=== PATIENT | male | born 1975 | race Caucasian/White ===

== ENCOUNTER 2023-04-05 08:13 | Outpatient (CLI) | payer MEDICAID | END 2023-04-05 23:59 | disposition critical access hospital (66) | LOC: EMS 08:13 | DX: R10.84 Generalized abdominal pain (principal); R11.10 Vomiting, unspecified | CPT/HCPCS: A0425; A0429; A0999 ==

== ENCOUNTER 2023-04-05 08:33 | Emergency (ER) | payer MEDICAID ==
[2023-04-05 08:52] VITALS: BP 121/84; O2SAT 98
== END 2023-04-05 09:05 | disposition left against medical advice (07) ==
LOC: ED 08:33
DX: Z53.21 Procedure and treatment not carried out due to patient leaving prior to being seen by health care provider (principal)
CPT/HCPCS: 99283

== ENCOUNTER 2023-04-05 09:47 | Emergency (ER) | payer MEDICAID ==
--- NOTE | 2023-04-05 10:22 | ED Physician Documentation ---
PD HPI ABD PAIN - Stated complaint Stated Complaint: GI - Chief complaint Chief Complaint: Abd Pain - History obtained from History obtained from: Patient - Additional information Additional information: Patient is a 48-year-old male with a history of opiate addiction presenting for evaluation of feeling generalized abdominal pain, cramping in the lower abdomen, nausea and vomiting, diarrhea for the past 2 days. Patient states that he had been constipated started using laxatives yesterday and has been having diarrhea since.He reports he has been having issues with his GI system for over a year a nd has not had any prior evaluations. He was at [facility] detoxing from fentanyl and had been there for 3 days. He states he was too ill to complete his treatment. He was sent to the emergency department from [facility]. He initially presented to the ER via EMS but then left without being seen. He then was waiting for the bus and decided to come back to the emergency department for evaluation. No fever, chest pain, shortness of air. Denies alcohol use. Denies prior abdominal surgeries.No blood in emesis or stools. Review of Systems Constitutional: denies: Fever Cardiac: denies: Chest pain / pressure Respiratory: denies: Dyspnea GI: reports: Abdominal Pain, Nausea, Diarrhea. denies: Bloody / black stool : denies: Dysuria PD PAST MEDICAL HISTORY - Past Medical History Past Medical History: Yes Cardiovascular: None Respiratory: None Neuro: None Endocrine/Autoimmune: None GI: None : None HEENT: None Psych: None Musculoskeletal: None Derm: None - Past Surgical History Past Surgical History: Yes Ortho: Other - Present Medications Home Medications: Ambulatory Orders Medication Instructions Recorded Confirmed Dicyclomine [Bentyl] 1 - 2 tab PO QID PRN #20 cap 04/05/23 Ondansetron Odt [Zofran] 4 mg TL Q6H PRN #10 tablet 04/05/23 Vancomycin HCl [Vancocin HCl] 125 mg PO QID 10 Days #20 cap 04/05/23 - Allergies Allergies/Adverse Reactions: Allergies Allergy/AdvReac Type Severity Reaction Status Date / Time Penicillins Allergy Hives Verified 04/05/23 10:04 - Social History Does the pt smoke?: No Smoking Status: Never smoker Does the pt drink ETOH?: No Does the pt have substance abuse?: Yes Substance Use and Type: Other - Immunizations Immunizations are current?: Yes - POLST Patient has POLST: No PD ED PE NORMAL - General General: Alert and oriented X 3, No acute distress, Well developed/nourished - HEENT HEENT: Atraumatic, Moist mucous membranes - Neck Neck: Supple, no meningeal sign - Cardiac Cardiac: RRR, Strong equal pulses - Respiratory Respiratory: No respiratory distress, Clear bilaterally - Abdomen Abdomen: Normal bowel sounds, Soft, Non distended, Other (Mild generalized abdominal tenderness) - Derm Derm: Warm and dry - Neuro Neuro: Normal speech Results - Vitals Vitals: Vital Signs - 24 hr 04/05/23 04/05/23 04/05/23 10:01 12:03 13:50 Temperature 36.2 C L 36.4 C L Heart Rate 77 91 97 Respiratory 18 15 16 Rate Blood Pressure 130/96 H 100/70 108/71 O2 Saturation 99 98 98 Oxygen O2 Source Room air - Labs Labs: Laboratory Tests 04/05/23 04/05/23 04/05/23 10:50 10:50 10:50 WBC 10.4 RBC 5.45 Hgb 16.2 Hct 46.5 MCV 85.3 MCH 29.7 MCHC 34.8 RDW 13.0 Plt Count 211 MPV 10.4 Neut # (Auto) 8.7 H Lymph # (Auto) 1.2 L [place] # (Auto) 0.4 Eos # (Auto) 0.0 Baso # (Auto) 0.0 Absolute Nucleated RBC 0.00 Nucleated RBC % 0.0 Sodium 139 Potassium 3.8 Chloride 104 Carbon Dioxide 27 Anion Gap 8.0 BUN 12 Creatinine 0.9 Estimated GFR (MDRD) 90 Glucose 119 H Calcium 9.9 Total Bilirubin 0.5 AST 19 ALT 21 Alkaline Phosphatase 79 Total Protein 7.0 Albumin 4.7 Globulin 2.3 Albumin/Globulin Ratio 2.0 Lipase 12 Stl C. diff Tox B Gene POSITIVE A* PD Medical Decision Making - ED course Complexity details: reviewed results, re-evaluated patient, d/w patient ED course: Pt is a 48 yo M with abdominal pain, diarrhea and N/V. Left [facility] this morning after 3 days stay for opiate addiction. States this does not feel like withdrawal to him. CBC, chemistries reviewed without significant findings. Generalized abdominal pain. VSS. Stool + for cdiff. Pt given IV fluids, zofran, toradol. Still reporting feeling pain and having tenderness so pt agreeable to dose of IV morphine. CT scan abd/pelvis obtained and reviewed. Findings of gastroenteritis/colitis. Pt feeling better. Tolerating PO. Understands diagnosis and treatment plan as well as need for close follow up. Pt advised on concerning symptoms to return for and ambulatory at discharge. Departure - Departure Disposition: Home, Self Care Clinical Impression: C. difficile diarrhea Condition: Stable Instructions: Clostridium Difficile Infec Prescriptions: Dicyclomine [Bentyl] 1 - 2 tab PO QID PRN #20 cap PRN Reason: Abdominal Pain Vancomycin HCl [Vancocin HCl] 125 mg PO QID 10 Days #20 cap Ondansetron Odt [Zofran] 4 mg TL Q6H PRN #10 tablet PRN Reason: Nausea / Vomiting Comments: Your testing today shows that you have an infection called C. difficile. That this infection in your stools and affects the GI system. I am starting you on an antibiotic which you should take for the next 10 days. You should also have close follow-up to ensure that this infection clears up. This infection is contagious and can be spread to other people in the household or that you are around. I have sent your prescriptions to [facility] on [facility] in [place]. I also sent prescriptions for a medication to help with the abdominal pain as well as nausea. Please make sure you are staying hydrated. Return to [facility] ER with any worsening symptoms. Forms: PCP List Discharge Date/Time: 04/05/23 13:55
[2023-04-05] MEDS: SODIUM CHLORIDE 0.9% 1,000 ML IV STA (10:30)
[2023-04-05] MEDS: ONDANSETRON 4 MG/2 ML VIAL IVP STA (10:31)
[2023-04-05] MEDS: KETOROLAC 30 MG/ML VIAL IVP STA (10:31)
[2023-04-05 11:00] LABS: BASOPHILS % (AUTO) 0.4 %; EOSINOPHILS % (AUTO) 0.1 %; HCT - HEMATOCRIT 46.5 % (42.0-52.0); HGB - HEMOGLOBIN 16.2 g/dL (14.0-18.0); LYMPHOCYTES # (AUTO) 1.2 10^3/uL (1.5-3.5); LYMPHOCYTES % (AUTO) 11.8 %; MEAN CORPUSCULAR HEMOGLOBIN 29.7 pg (27.0-31.0); MEAN CORPUSCULAR HGB CONC 34.8 g/dL (32.0-36.0); MEAN CORPUSCULAR VOLUME 85.3 fL (80.0-94.0); MEAN PLATELET VOLUME 10.4 fL (7.4-11.4); MONOCYTES # (AUTO) 0.4 10^3/uL (0.0-1.0); NEUTROPHILS # (AUTO) 8.7 10^3/uL (1.5-6.6); NEUTROPHILS % (AUTO) 83.4 %; PLT - PLATELET COUNT 211 10^3/uL (130-450); RED BLOOD COUNT 5.45 10^6/uL (4.70-6.10); WHITE BLOOD COUNT 10.4 x10^3/uL (4.8-10.8)
[2023-04-05] MEDS ORDERED: iohexoL-300 100 ML VIAL ONE (11:42)
[2023-04-05 12:23] LABS: ALBUMIN 4.7 g/dL (3.2-5.5); BILIRUBIN,TOTAL 0.5 mg/dL (0.2-1.0); CALCIUM 9.9 mg/dL (8.5-10.3); CREATININE 0.9 mg/dL (0.6-1.3); POTASSIUM 3.8 mmol/L (3.5-4.5)
[2023-04-05] MEDS: MORPHINE 2 MG/ML CARPUJECT IVP STA (12:34)
[2023-04-05 12:47] VITALS: O2SAT 98
--- NOTE | 2023-04-05 13:18 | CT Report ---
PROCEDURE: Abdomen/Pelvis W INDICATIONS: Generalized pain with vomiting CONTRAST: Omni 300 100ml TECHNIQUE: After the administration of intravenous contrast, a CT scan of the abdomen and pelvis was performed. Images were recorded and evaluated at appropriate window settings. Reformats: coronal and sagittal. F or radiation dose reduction, the following was used: automated exposure control, adjustment of mA and /or kV according to patient size. COMPARISON: None. FINDINGS: Image quality: Diagnostic Lower chest: Basal atelectasis. Mild esophageal wall thickening at the distal aspect, partially seen Liver: Unremarkable Gallbladder and biliary system: Unremarkable, nondilated Pancreas: No ductal dilation Spleen: Nonenlarged Adrenals: No discrete nodules Kidneys: No solid mass or hydronephrosis Vessels and lymph nodes: The main portal vein is patent. No abdominal aortic aneurysm. No pathologic lymph nodes by size criteria. There are prominent upper abdominal lymph nodes are nonspecific and may be reactive, for example the portal caval node and periesophageal junction nodes. Bowel and peritoneum: Mild wall thickening of the proximal stomach. No evidence of small bowel obstru ction. Prominent fluid-filled proximal small bowel loops are also noted. Mild wall thickening and liq uid contents in the distal colon. The appendix is nondilated. Body wall: Tiny fat-containing umbilical hernia. Pelvis: Bladder is unremarkable. Prostate is not well evaluated on this study. Bones: No acute or suspicious osseous finding. IMPRESSION: Mild wall thickening of the proximal stomach and distal esophagus, partially evaluated and seen on th is study. There are also prominent fluid-filled loops of proximal small bowel, with liquid contents a nd mild wall thickening also seen in the distal colon and rectum. Findings likely represent gastroent eritis and colitis. Consider endoscopic correlation if clinically indicated. No complete bowel obstru ction is identified. The appendix is normal diameter. Other findings as above. Reviewed by: Chas Diaz MD on 04/05/2023 1:17 PM PST Approved by: Chas Diaz MD on 04/05/2023 1:17 PM PST Station ID: [id number]
[2023-04-05] MEDS: VANCOMYCIN 125 MG CAPSULE PO STA (13:43)
[2023-04-05 13:51] VITALS: BP 108/71
[2023-04-05] MEDS: iohexoL-300 100 ML VIAL IVP ONE (15:42)
== END 2023-04-05 13:55 | disposition home or self-care (01) ==
LOC: ED 09:47
DX: A04.72 Enterocolitis due to Clostridium difficile, not specified as recurrent (principal)
CPT/HCPCS: 36415; 74177; 80053; 83690; 85025; 87045; 87046; 87427; 87493; 96374; 96375; 99284; J8499; Q9967; 99283